=== PATIENT | male | born 1960 | race Caucasian/White ===

== ENCOUNTER 2017-06-14 10:15 | Emergency (ER) | payer SELFPAY ==
[2017-06-14] MEDS ORDERED: IPRATROPIUM/ALBUTEROL SULFATE 3 ML AMPUL.NEB NEB ONE (10:19)
[2017-06-14] MEDS: IPRATROPIUM/ALBUTEROL SULFATE 3 ML AMPUL.NEB NEB STA (10:25)
[2017-06-14] MEDS ORDERED: ALBUTEROL SULFATE 2.5 MG/3 ML AMPUL.NEB NEB ONE (10:32)
[2017-06-14] MEDS: methylPREDNISolone SOD SUCC 125 MG/2 ML VIAL IVP ONE (10:43)
[2017-06-14] MEDS: ALBUTEROL SULFATE 2.5 MG/0.5 ML AMPUL.NEB NEB ONE (10:43)
[2017-06-14 11:18] LABS: BASOPHILS % 1.8 (0.0-1.5); EOSINOPHILS % 13.7 % (0.0-6.8); MEAN CORPUSCULAR HEMOGLOBIN 30.5 pg (28.0-34.0); MEAN CORPUSCULAR VOLUME 91.8 fl (80.0-100.0); MONOCYTES % 4.8 % (0.0-11.0); NEUTROPHILS # 3.6 # k/uL (1.4-7.7)
[2017-06-14 11:19] LABS: eGFR (African) > 60; eGFR (Non-African) > 60
--- NOTE | 2017-06-14 12:18 | ED Physician Documentation ---
Dyspnea - HISTORIAN Historian: patient - HPI Stated Complaint: short of breath Chief Complaint: Dyspnea Onset: days ago (7) Duration: continues in ED, worse Initiating Event: upper respiratory illness Severity: moderate Further Comments: yes (56 year old male patient presents with complaints of wheezing and dyspnea. Patient reports symptoms started 7 days ago and have become progressively worse. Patient reports being incarcerated for the past 3 years, was released in early April. Patient is now out of his daily medications and has 12 puffs of albuterol left. States he quit smoking 8 months ago, strong smell of cigarette smoke. C/O wheezing and dyspnea.) - ROS CONST: no problems EYES/ENT: none GI/: none NEURO/PSYCH: denies: headache MS/SKIN/LYMPH: none - PAST HX Lung Disease: asthma, COPD Cardiac Disease: other (HLD) PE Risk Factors: hypertension Other History: diabetes Type 2, other (hypothyriod) Allergies/Adverse Reactions: Allergies Allergy/AdvReac Type Severity Reaction Status Date / Time latex Allergy Verified 06/14/17 10:48 No Known Drug Allergies Allergy Verified 07/04/14 21:23 Home Medications: Ambulatory Orders Medication Instructions Recorded Albuterol Sulfate [Ventolin HFN] 2.5 mg NEB Q4 PRN #25 vial 06/14/17 Fluticasone/Salmeterol [Advair 1 each INH BID #1 ea 06/14/17 250-50 Diskus] Ipratropium/Albuterol Sulfate 3 ml NEB BID #25 ampul.neb 06/14/17 [Duoneb] Levofloxacin [Levaquin] 500 mg PO DAILY #7 tablet 06/14/17 - SOCIAL HX Smoking History: quit less than 1 year, cigarettes - FAMILY HX Family History: denies: none - VITAL SIGNS Vital Signs: Vital Signs Temp Pulse Resp BP Pulse Ox 37.1 F L 83 24 120/90 95 06/14/17 10:16 06/14/17 10:16 06/14/17 10:16 06/14/17 10:16 06/14/17 10:16 - REVIEWED ASSESSMENTS Nursing Assessment Reviewed: Yes Vitals Reviewed: Yes Progress - Progress Progress: Patient with mild tachpnea on arrival, able to speak in complete sentences, RA Sat 95%, Duoneb given on arrival. RA sat 95% Continued wheezing, albuterol neb given. Faint expiratory wheezing. Patient reports he does not have health insurance or prescription insurance, no PCP. Has tapered off his daily medications including singulair, metoprolol, norvasc, levothyroxine and aspirin. Coupon provided for singulair, advair and levaquin. Patient cannot afford inhaler. Nebulizer prescriptions sent for duoneb and albuterol. ED Results Lab/Radiology - Lab Results Lab Results: Lab Results 06/14/17 06/14/17 11:03 11:03 WBC 6.50 K/ul K/ul (4.00-12.00) RBC 4.70 M/ul M/ul (3.90-5.20) Hgb 14.3 g/dL g/dL (12.0-18.0) Hct 43.1 % % (37.0-53.0) MCV 91.8 fl fl (80.0-100.0) MCH 30.5 pg pg (28.0-34.0) MCHC 33.2 g/dL g/dL (30.0-36.0) RDW 13.0 % % (11.3-14.3) Plt Count 195 K/mm3 K/mm3 (130-400) Neut % (Auto) 55.0 % % (39.0-79.0) Lymph % (Auto) 21.5 % % (16.0-50.0) [place] % (Auto) 4.8 % % (0.0-11.0) Eos % (Auto) 13.7 % H % (0.0-6.8) Baso % (Auto) 1.8 H (0.0-1.5) Neut # (Auto) 3.6 # k/uL # k/uL (1.4-7.7) Lymph # (Auto) 1.4 # k/uL # k/uL (0.6-4.0) [place] # (Auto) 0.3 # k/uL # k/uL (0.0-0.9) Eos # (Auto) 0.9 # k/uL H # k/uL (0.0-0.6) Baso # (Auto) 0.1 # k/uL # k/uL (0.0-0.5) Reactive Lymphs % 3.2 % % (0.0-5.0) Reactive Lymphs # 0.2 # k/uL # k/uL (0.0-0.8) Sodium 138 mmol/L mmol/L (136-145) Potassium 4.2 mmol/L mmol/L (3.5-5.0) Chloride 105 mmol/L mmol/L (98-110) Carbon Dioxide 24 mmol/L mmol/L (20-32) BUN 15 mg/dL mg/dL (10-26) Creatinine 1.0 mg/dL mg/dL (0.4-1.5) Estimated Creat Clear 86 Est GFR ( Amer) > 60 (60 - ) Est GFR (Non-Af Amer) > 60 (60 - ) Glucose 192 mg/dL H mg/dL (70-99) Calcium 9.4 mg/dL mg/dL (8.5-10.5) Total Bilirubin 0.4 mg/dL mg/dL (0.2-1.2) AST 21 U/L U/L (0-41) ALT 25 U/L U/L (0-45) Alkaline Phosphatase 75 U/L U/L (46-116) Total Protein 7.3 g/dL g/dL (6.0-8.5) Albumin 4.5 g/dL g/dL (3.0-5.5) - Radiology Radiology Impressions: Chest 2 views History: Shortness of breath Findings: The sourav are normal in size. Mild bilateral perihilar haziness may represent infiltrate or bronchitis. A calcified right lung granuloma and right shoulder arthroplasty are observed. Heart size is normal. There is no pleural effusion. Impression: Mild bilateral perihilar infiltrate versus bronchitis. Electronically signed on Jun 14, 2017 11:50:35 AM CDT by: Tom Soriano - Orders Orders: ED Orders Category Date Time Status Place IV Lock 1T Care 06/14/17 10:24 Active CHEST 1 VIEW [RAD] Stat Exams 06/14/17 10:24 Taken CHEST 2 VIEW [CHEST P.A.&LAT 2 VIEWS] [RAD] Stat Exams 06/14/17 Taken CBC/PLATELET/DIFF Stat Lab 06/14/17 11:03 Completed CMP Stat Lab 06/14/17 11:03 Completed Albuterol Sulfate Med 06/14/17 10:31 Discontinued 2.5 mg NEB NOW ONE Albuterol Sulfate [Ventolin] Med 06/14/17 10:32 Discontinued 2.5 mg NEB .STK-MED ONE Ipratropium/Albuterol Sulfate [Duoneb] Med 06/14/17 10:19 Discontinued 3 ml NEB .STK-MED ONE Ipratropium/Albuterol Sulfate [Duoneb] Med 06/14/17 10:23 Discontinued 3 ml NEB STAT STA methylPREDNISolone SOD SUCC [Solu-MEDROL] Med 06/14/17 10:24 Discontinued 125 mg IVP NOW ONE Dyspnea Physical Exam - EXAM General Appearance: moderate distress EENT: eye inspection normal, ENT inspection normal, pharynx normal, no signs of dehydration, [place], no nystagmus, TM's nml Respiratory: no pain on inspiration, speaks full sentences, accessory muscle use , wheezes (bilateral expiratory) CVS: reg. 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 Neuro/Psych: oriented x3, CN's nml as tested, motor nml, sensation nml, mood/ affect nml Discharge Clincal Impression: Does not have health insurance Asthma Qualifiers: Asthma severity: unspecified severity Asthma complication type: with acute exacerbation Qualified Code(s): J45.901 - Unspecified asthma with (acute) exacerbation Dyspnea Qualifiers: Dyspnea type: other forms of dyspnea Qualified Code(s): R06.09 - Other forms of dyspnea Prescriptions: Albuterol Sulfate [Ventolin HFN] 2.5 mg NEB Q4 PRN #25 vial PRN Reason: Wheezing Fluticasone/Salmeterol [Advair 250-50 Diskus] 1 each INH BID #1 ea Ipratropium/Albuterol Sulfate [Duoneb] 3 ml NEB BID #25 ampul.neb Levofloxacin [Levaquin] 500 mg PO DAILY #7 tablet Referrals: Primary Doctor,No [Primary Care Provider] - 2 Days Additional Instructions: regulation supervisor your prescriptions at [facility] today. Levaquin - antibiotic Duoneb - nebulizer, twice a day Albuterol - nebulizer, as needed for wheezing. You should have a coupon in your email for Advair Fill your Singulair at [facility] with the coupon provided tomorrow. STOP SMOKING Establish primary care at one of the free clinics in the list provided. You need to RESTART many of your daily medication. Home Medications: Ambulatory Orders Albuterol Sulfate [Ventolin HFN] 2.5 mg NEB Q4 PRN #25 vial 06/14/17 Fluticasone/Salmeterol [Advair 250-50 Diskus] 1 each INH BID #1 ea 06/14/17 Ipratropium/Albuterol Sulfate [Duoneb] 3 ml NEB BID #25 ampul.neb 06/14/17 Levofloxacin [Levaquin] 500 mg PO DAILY #7 tablet 06/14/17 Condition: Stable Disposition: 01 HOME, SELF-CARE Decision to Admit: NO Decision Time: 12:18
[2017-06-14 12:31] VITALS: BP 122/81
--- NOTE | 2017-06-14 18:24 | Diagnostic Imaging Report ---
LAVERNE GATICA (LEE) - ER~ [facility] [address] [address] ~ ~ ~ ~ Report Submission Date: Jun 14, 2017 11:14:38 AM CDT Patient ~ Study Name: NEMO DE DIOS ~ Date: Jun 14, 2017 10:50:38 AM CDT ~ Modality Type: CR Gender: M ~ Description: CHEST : 64 ~ Institution: [facility] Physician: LAVERNE GATICA) - ER ~ ~ ~ ~ Portal chest History: 1 week of shortness of breath Findings: Right shoulder arthroplasty is observed. The left hilum is mildly enlarged. A calcified right lung granuloma is present. There is no confluent infiltrate or pleural effusion. Heart size is normal. Impression: Mild left hilar enlargement. Differential includes normal variation , lymphadenopathy, mass, vascular enlargement, or perihilar infiltrate. Recommend a standing 2 view chest radiograph with maximal inspiratory effort. ~ Electronically signed on Jun 14, 2017 11:14:38 AM CDT by: Tom ORDOÑEZ
--- NOTE | 2017-06-14 18:25 | Diagnostic Imaging Report ---
LAVERNE GATICA (LEE) - ER~ [facility] [address] [address] ~ ~ ~ ~ Report Submission Date: Jun 14, 2017 11:50:35 AM CDT Patient ~ Study Name: NEMO DE DIOS ~ Date: Jun 14, 2017 11:30:31 AM CDT ~ Modality Type: CR Gender: M ~ Description: CHEST : 64 ~ Institution: [facility] Physician: LAVERNE GATICA) - ER ~ ~ ~ ~ Chest 2 views History: Shortness of breath Findings: The sourav are normal in size. Mild bilateral perihilar haziness may represent infiltrate or bronchitis. A calcified right lung granuloma and right shoulder arthroplasty are observed. Heart size is normal. There is no pleural effusion. Impression: Mild bilateral perihilar infiltrate versus bronchitis. ~ Electronically signed on Jun 14, 2017 11:50:35 AM CDT by: Tom ORDOÑEZ
== END 2017-06-14 12:29 | disposition home or self-care (01) ==
LOC: ED 10:15
DX: J45.901 Unspecified asthma with (acute) exacerbation (principal); R06.09 Other forms of dyspnea
CPT/HCPCS: 71010; 71020; 80053; 85025; J2930; 96374; 99283; S1016

== ENCOUNTER 2017-07-11 06:45 | Emergency (ER) | payer SELFPAY ==
[2017-07-11] MEDS ORDERED: 0.9 % SODIUM CHLORIDE 1,000 ML IV ONE ×2 (06:55→07:00)
[2017-07-11 07:27] LABS: BASOPHILS % 0.5 (0.0-1.5); EOSINOPHILS % 1.1 % (0.0-6.8); MEAN CORPUSCULAR HEMOGLOBIN 30.3 pg (28.0-34.0); MEAN CORPUSCULAR VOLUME 91.4 fl (80.0-100.0); MONOCYTES % 5.2 % (0.0-11.0); NEUTROPHILS # 5.2 # k/uL (1.4-7.7)
[2017-07-11 07:30] LABS: eGFR (African) > 60; eGFR (Non-African) > 60
[2017-07-11] MEDS ORDERED: 0.9 % SODIUM CHLORIDE 1,000 ML IV SCH ×2 (07:30→09:00)
[2017-07-11] MEDS ORDERED: cefTRIAXone SODIUM 1 GM VIAL ONE (07:37)
[2017-07-11] MEDS ORDERED: 0.9 % SODIUM CHLORIDE 50 ML IV ONE (07:38)
--- NOTE | 2017-07-11 07:59 | Diagnostic Imaging Report ---
[facility] [address] [address] Report Submission Date: Jul 11, 2017 7:41:04 AM CDT Patient Study Name: NEMO DE DIOS Date: Jul 11, 2017 7:15:13 AM CDT Modality Type: CR Gender: M Description: CHEST : 64 Institution: [facility] Physician: DANGELO CHEN - ROXANA 2 views of the chest History: COUGH. SHORTNESS OF BREATH. NON-SMOKER Comparison: June 14, 2017 Cardiomediastinal silhouette stable, right lower lobe calcified granuloma is again seen. Prominent sourav and peribronchial thickening is again noted. There is bibasilar atelectasis. Interval development of patchy opacity in the left lower lobe. No pleural effusion Patient is post right humeral prosthesis Impression: 1. Stable hilar prominence with bronchitis/ patchy infiltrates 2. Interval development of left lower lobe infiltrate /atelectasis. 3. Subsegmental right lower lobe atelectasis. No pleural effusion. Electronically signed on Jul 11, 2017 7:41:04 AM CDT by: Yvonne ORDOÑEZ
[2017-07-11] MEDS ORDERED: cefTRIAXone SODIUM 1 GM in 0.9 % SODIUM CHLORIDE 50 ML IV SCH (08:00)
[2017-07-11] MEDS ORDERED: METOPROLOL TARTRATE 5 MG/5 ML VIAL IVP ONE ×3 (08:47→09:18)
[2017-07-11] MEDS ORDERED: ALBUTEROL SULFATE 2.5 MG/0.5 ML AMPUL.NEB NEB ONE (08:52)
[2017-07-11] MEDS ORDERED: BUDESONIDE 0.5MG/2ML AMPUL.NEB NEB ONE (08:52)
[2017-07-11] MEDS ORDERED: ALBUTEROL SULFATE 2.5 MG/3 ML AMPUL.NEB NEB ONE (08:53)
[2017-07-11] MEDS ORDERED: LEVALBUTEROL HCL 1.25 MG/3 ML AMPUL.NEB NEB ONE ×2 (08:53→08:57)
[2017-07-11] MEDS ORDERED: BUDESONIDE 0.5MG/2ML AMPUL.NEB NEB SCH (09:00)
--- NOTE | 2017-07-11 10:37 | Diagnostic Imaging Report ---
[facility] [address] [facility].[address] [address] Report Submission Date: Jul 11, 2017 10:27:53 AM CDT Patient Study Name: NEMO DE DIOS Date: Jul 11, 2017 9:59:12 AM CDT Modality Type: CT\SR Gender: M Description: CT ANGIOGRAPHY CHEST 7 : 64 Institution: [facility] Physician: DANGELO CHEN - ER Examination: CT chest pulmonary embolism History: Chest discomfort. Comparison exam: Plain film chest dated July 2017 Technique: CT chest pulmonic pulmonary embolism protocol. Findings: Within a peripheral branch vessels to the left lower lung is a luminal filling defect. No evidence for luminal filling defect within the main pulmonary arteries bilaterally. Thoracic aorta without aneurysmal dilation. No evidence for dissection flap. Minimal peripheral atherosclerotic disease. Lungs demonstrate dependent atelectasis bilaterally. Mild parenchymal haziness involving the right lower and middle lungs. No evidence for posterior pleural effusion or thickening. Prominent right hilar lymph nodes: Largest measuring 1.6 cm. Cardiac silhouette not enlarged. No pericardial effusion. Osseous structures demonstrate mild degenerative changes. Lower neck structures , axilla regions, and upper abdominal organs are without gross irregularity. Impression: Small peripheral luminal filling defect to the left lower lung - small peripheral pulmonary emboli. No evidence for central pulmonary embolism by CT criteria. No evidence for thoracic aortic dissection or abnormality. Mild right middle and lower lung infiltrates. Associated right hilar prominent lymph nodes - possibly reactive in etiology. Electronically signed on Jul 11, 2017 10:27:53 AM CDT by: Sergio ORDOÑEZ
[2017-07-11] MEDS ORDERED: HEPARIN SODIUM,PORCINE/D5W 500 ML IV ONE ×3 (11:05→11:30)
[2017-07-11] MEDS ORDERED: HEPARIN SODIUM 5000 UNIT/1 ML IVP ONE (11:07)
[2017-07-11] MEDS ORDERED: HEPARIN SODIUM,PORCINE/D5W 20,000 UNIT/500 ML BAG IV ONE (11:08)
[2017-07-11] MEDS ORDERED: HEPARIN SODIUM 5000 UNIT/1 ML ONE (11:09)
[2017-07-11] MEDS ORDERED: WATER IV ONE ×2 (11:42)
[2017-07-11] MEDS ORDERED: HEPARIN SODIUM IV ONE ×2 (11:42)
[2017-07-11] MEDS ORDERED: DEXTROSE 5% IV ONE ×2 (11:42)
--- NOTE | 2017-07-11 12:06 | ED Physician Documentation ---
Dyspnea - HISTORIAN Historian: patient, spouse - HPI Stated Complaint: SOA Chief Complaint: Dyspnea Additional Information: dyspnea tachypnea tachycardia' pt under care for few weeks tx few weeks ago w/ azithromycin better short period time then worse - recent w/ levaquin still worse. says black mold in house. 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 had [facility] another here still sob and tachy Onset: days ago (weeks) Duration: continues in ED. denies: better Initiating Event: upper respiratory illness, environmental allergy, exposure to smoke, exposure to mold Severity: moderate Exacerbated By: exertion, laying flat Associated Symptoms: chest discomfort, productive cough, heart racing. denies: chills, fever Further Comments: no - ROS CONST: recent illness EYES/ENT: denies: problems with vision GI/: none NEURO/PSYCH: denies: headache - PAST HX Lung Disease: asthma, bronchitis PE Risk Factors: hypertension (mother w/ ), hx DVT (motherdiied w/pulm emb) Surgeries/Procedures: other (shoulder) Allergies/Adverse Reactions: Allergies Allergy/AdvReac Type Severity Reaction Status Date / Time latex Allergy Verified 07/11/17 06:53 No Known Drug Allergies Allergy Verified 07/11/17 06:53 Home Medications: Ambulatory Orders Medication Instructions Recorded Albuterol Sulfate [Ventolin HFN] 2.5 mg NEB Q4 PRN #25 vial 06/14/17 Fluticasone/Salmeterol [Advair 1 each INH BID #1 ea 06/14/17 250-50 Diskus] Ipratropium/Albuterol Sulfate 3 ml NEB BID #25 ampul.neb 06/14/17 [Duoneb] Levofloxacin [Levaquin] 500 mg PO DAILY #7 tablet 06/14/17 - SOCIAL HX Smoking History: non-smoker Alcohol Use: none Drug Use: none - FAMILY HX Family History: other (mom w PE) - VITAL SIGNS Vital Signs: Vital Signs Temp Pulse Resp BP Pulse Ox 100.8 F H 168 H 22 111/67 87 L 07/11/17 06:45 07/11/17 06:45 07/11/17 06:45 07/11/17 06:45 07/11/17 06:45 - REVIEWED ASSESSMENTS Nursing Assessment Reviewed: Yes Vitals Reviewed: Yes ED Results Lab/Radiology - Lab Results Lab Results: Lab Results 07/11/17 07/11/17 07/11/17 07:15 07:15 07:15 WBC RBC Hgb Hct MCV MCH MCHC RDW Plt Count Neut % (Auto) Lymph % (Auto) [place] % (Auto) Eos % (Auto) Baso % (Auto) Neut # (Auto) Lymph # (Auto) [place] # (Auto) Eos # (Auto) Baso # (Auto) Reactive Lymphs % Reactive Lymphs # PT INR APTT 25.0 Seconds Seconds (24.5-32.8) Sodium 134 mmol/L L mmol/L (137-145) Potassium 3.7 mmol/L mmol/L (3.5-5.1) Chloride 104 mmol/L mmol/L (98-107) Carbon Dioxide 20 mmol/L L mmol/L (22-30) BUN 13 mg/dL mg/dL (9-20) Creatinine 1.00 mg/dL mg/dL (0.66-1.25) Estimated Creat Clear 91 Est GFR ( Amer) > 60 (60 - ) Est GFR (Non-Af Amer) > 60 (60 - ) Glucose 248 mg/dL H mg/dL (74-106) Lactate 2.5 U/L H U/L (0.7-2.1) Calcium 7.9 mg/dL L mg/dL (8.4-10.2) Total Bilirubin 0.2 mg/dL mg/dL (0.2-1.3) AST 17 U/L U/L (15-46) ALT 36 U/L U/L (13-69) Alkaline Phosphatase 57 U/L U/L (38-126) Total Protein 6.3 g/dL g/dL (6.3-8.2) Albumin 3.5 g/dL g/dL (3.5-5.0) 07/11/17 07/11/17 07:15 07:15 WBC 6.02 K/ul K/ul (4.00-12.00) RBC 4.37 M/ul M/ul (3.90-5.20) Hgb 13.3 g/dL g/dL (12.0-18.0) Hct 40.0 % % (37.0-53.0) MCV 91.4 fl fl (80.0-100.0) MCH 30.3 pg pg (28.0-34.0) MCHC 33.2 g/dL g/dL (30.0-36.0) RDW 12.9 % % (11.3-14.3) Plt Count 151 K/mm3 K/mm3 (130-400) Neut % (Auto) 86.4 % H % (39.0-79.0) Lymph % (Auto) 5.6 % L % (16.0-50.0) [place] % (Auto) 5.2 % % (0.0-11.0) Eos % (Auto) 1.1 % % (0.0-6.8) Baso % (Auto) 0.5 (0.0-1.5) Neut # (Auto) 5.2 # k/uL # k/uL (1.4-7.7) Lymph # (Auto) 0.3 # k/uL L # k/uL (0.6-4.0) [place] # (Auto) 0.3 # k/uL # k/uL (0.0-0.9) Eos # (Auto) 0.1 # k/uL # k/uL (0.0-0.6) Baso # (Auto) 0.0 # k/uL # k/uL (0.0-0.5) Reactive Lymphs % 1.2 % % (0.0-5.0) Reactive Lymphs # 0.1 # k/uL # k/uL (0.0-0.8) PT 10.2 Seconds Seconds (9.4-11.6) INR 0.97 (0.9-1.2) APTT Sodium Potassium Chloride Carbon Dioxide BUN Creatinine Estimated Creat Clear Est GFR ( Amer) Est GFR (Non-Af Amer) Glucose Lactate Calcium Total Bilirubin AST ALT Alkaline Phosphatase Total Protein Albumin - Radiology Radiology Impressions: cxr multi areas congestion - Orders Orders: ED Orders Category Date Time Status CHEST P.A.&LAT 2 VIEWS [RAD] Stat Exams 07/11/[address] PE CHEST Stat Exams 07/11/17 Completed BLOOD CULTURE Stat Lab 07/11/17 07:15 Received CBC/PLATELET/DIFF Routine Lab 07/11/17 07:15 Completed CMP Routine Lab 07/11/17 07:15 Completed LACTATE Stat Lab 07/11/17 07:15 Completed PT-INR Routine Lab 07/11/17 07:15 Completed PTT Routine Lab 07/11/17 07:15 Completed 0.9 % Sodium Chloride [Normal Saline] 1,000 ml Med 07/11/17 06:55 Discontinued IV .STK-MED 0.9 % Sodium Chloride [Normal Saline] 1,000 ml Med 07/11/17 07:30 Discontinued IV Q10H 0.9 % Sodium Chloride [Normal Saline] 1,000 ml Med 07/11/17 09:00 Ordered IV Q10H 0.9 % Sodium Chloride [Normal Saline] 1,000 ml Med 07/11/17 07:00 Discontinued IV Q1H 0.9 % Sodium Chloride [Sodium Chloride] 50 ml Med 07/11/17 07:38 Discontinued IV .STK-MED Albuterol Sulfate Med 07/11/17 08:52 Discontinued 2.5 mg NEB NOW ONE Albuterol Sulfate [Ventolin] Med 07/11/17 08:53 Discontinued 2.5 mg NEB .STK-MED ONE Budesonide [Pulmicort] Med 07/11/17 09:00 Ordered 0.5 mg NEB BID Heparin Sodium [Heparin] Med 07/11/17 11:09 Discontinued 5,000 unit .ROUTE .STK-MED ONE Heparin Sodium [Heparin] Med 07/11/17 11:07 Discontinued 5,000 unit IVP NOW ONE Heparin Sodium,Porcine/D5w [Heparin] 500 ml Med 07/11/17 11:05 Discontinued IV 1T Heparin Sodium,Porcine/D5w [Heparin] 500 ml Med 07/11/17 11:06 Discontinued IV 1T Heparin Sodium,Porcine/D5w [Heparin] 500 ml Med 07/11/17 11:30 Discontinued IV 1T Heparin Sodium,Porcine/D5w [Heparin] 500 ml Med 07/11/17 11:42 Ordered IV DAILY Levalbuterol HCl [Xopenex] Med 07/11/17 08:53 Discontinued 1.25 mg NEB .STK-MED ONE Levalbuterol HCl [Xopenex] Med 07/11/17 08:57 Discontinued 1.25 mg NEB NOW ONE Metformin HCl [Glucophage] Med 07/11/17 08:57 Discontinued 1,000 mg PO NOW ONE Metoprolol Tartrate [Toprol] Med 07/11/17 08:47 Discontinued 5 mg IVP .STK-MED ONE Metoprolol Tartrate [Toprol] Med 07/11/17 08:47 Discontinued 5 mg IVP NOW ONE Metoprolol Tartrate [Toprol] Med 07/11/17 09:18 Discontinued 5 mg IVP NOW ONE cefTRIAXone SODIUM [Rocephin] Med 07/11/17 07:37 Discontinued 1 gm .ROUTE .STK-MED ONE cefTRIAXone SODIUM [Rocephin] 1 gm Med 07/11/17 08:00 Ordered 0.9 % Sodium Chloride [Sodium Chloride] 50 ml IV QD EKG WITH COMPARISON Stat Ther 07/11/17 Ordered Dyspnea Physical Exam - EXAM General Appearance: moderate distress, other (tachycardia 150s). No: hyperventilating EENT: eye inspection normal Neck: nml inspection Respiratory: speaks full sentences, decreased air movement, wheezes, rales, rhonchi. No: breath sounds nml, respiratory distress CVS: tachycardia Abdomen: non-tender Skin: color nml, no rash. No: cyanosis, diaphoresis, pallor, ecchymosis Extremities: non-tender, normal range of motion Neuro/Psych: oriented x3, motor nml, sensation nml, mood/affect nml Discharge Clincal Impression: multi small peripheral pulm emboli, persistent tachycardia tachypnea, unc diabetes Referrals: Primary Doctor,No [Primary Care Provider] - 2 Days Comments: bernadette canela w/pt DR SOTO [facility] [place] via ambulance for detailed pulm eval and tx Condition: Good Disposition: 02 XFER [facility]M HOSP Decision to Admit: [id number] Decision Time: 11:20
[2017-07-11 13:26] VITALS: BP 110/72
[2017-07-12 05:37] LABS: APPEARANCE,URINE CLEAR (CLEAR); COLOR,URINE YELLOW (YELLOW); OCCULT BLOOD,URINE NEGATIVE (NEGATIVE); UROBILINOGEN URINE 0.2 Eu (0.2-1.0)
== END 2017-07-11 13:20 | disposition short-term general hospital (02) ==
LOC: ED 06:45
DX: I26.99 Other pulmonary embolism without acute cor pulmonale (principal); R00.0 Tachycardia, unspecified; R06.82 Tachypnea, not elsewhere classified; E11.649 Type 2 diabetes mellitus with hypoglycemia without coma
CPT/HCPCS: 36415; 71020; 71275; 80053; 83605; 85025; 85610; 85730; 87040; 93005; J0696; J1644; J3490; J7030; J7614; J7626; Q9966; 81002; 96361; 96374; 96375; 96376; 99284; S1016

== ENCOUNTER 2017-10-07 10:55 | Emergency (ER) | payer SELFPAY ==
--- NOTE | 2017-10-07 11:15 | ED Physician Documentation ---
Asthma - HISTORIAN Historian: patient - HPI Stated Complaint: shortness of breath Chief Complaint: Dyspnea Additional Information: Patient has an admission to acute care for asthma and influenza in Jul of this year. Over the last week he started to have some difficulties again. Patient has been put on sigular and Advair and Spiriva. Has not been able to afford the medications and has not been taking them. Has been Albuterol MDI and duoneb treatments and seems to be getting worse. Cough is dry, sometimes clear in nature, no fever or chills noted. Onset: days ago (7 days) Duration: continues in ED - ROS CONST: no problems - PAST HX Asthma: occasional attacks, previously admitted Lung Disease: asthma Other History: diabetes Type 2, hypertension Surgeries/Procedures: other (total shoulder right, arthroscopic surgery on right knee) Allergies/Adverse Reactions: Allergies Allergy/AdvReac Type Severity Reaction Status Date / Time latex Allergy Verified 10/07/17 11:07 No Known Drug Allergies Allergy Verified 10/07/17 11:07 Home Medications: Ambulatory Orders Medication Instructions Recorded Albuterol Sulfate [Ventolin HFN] 2.5 mg NEB Q4 PRN #25 vial 06/14/17 Fluticasone/Salmeterol [Advair 1 each INH BID #1 ea 06/14/17 250-50 Diskus] Ipratropium/Albuterol Sulfate 3 ml NEB BID #25 ampul.neb 06/14/17 [Duoneb] Esomeprazole Magnesium [Nexium] 20 mg PO 10/07/17 Fexofenadine HCl [Zully] 30 mg PO 10/07/17 Levothyroxine Sodium [Unithroid] 100 mcg PO QDAY 10/07/17 Lisinopril [Lisinopril] 40 mg PO QDAY 10/07/17 Metformin HCl [Metformin HCl ER] 1,000 mg PO 10/07/17 Metoprolol Succinate [Toprol XL] 25 mg PO 10/07/17 Ranitidine HCl [Zantac] 75 mg PO 10/07/17 predniSONE [Deltasone] 10 mg PO DIRECTED #36 tablet 10/07/17 - SOCIAL HX Smoking History: non-smoker, quit greater than 1 year (26 years ago) Alcohol Use: none Drug Use: none - FAMILY HX Family History: asthma - VITAL SIGNS Vital Signs: Vital Signs Temp Pulse Resp BP Pulse Ox 97.6 F 93 H 20 156/78 95 10/07/17 10:55 10/07/17 10:55 10/07/17 10:55 10/07/17 10:55 10/07/17 10:55 - REVIEWED ASSESSMENTS Nursing Assessment Reviewed: Yes Vitals Reviewed: Yes Progress - Progress Progress: 12:23 Breathing some better, still wheezing some but moving air better ED Results Lab/Radiology - Radiology Radiology Impressions: Examination: PA and lateral chest. History: Evaluate lung benton. Comparison exam: One of 2016 Findings: PA lateral chest demonstrate a normal cardiac and mediastinal silhouette. Stable hilar vascular fullness. Stable right lower lung granuloma. No focal infiltrate. No blunting of the costophrenic margins. Right humeral replacement. Impression: Stable examination. No acute pulmonary process. Asthma Physical Exam - EXAM General Appearance: alert, mild distress EENT: eye inspection normal, ENT inspection normal, pharynx normal, no signs of dehydration Neck: nml inspection. No: lymphadenopathy Respiratory: speaks full sentences, respiratory distress (mild), wheezes (bilat exspiratory). No: chest wall tenderness CVS: reg rate & rhythm, heart sounds normal, equal pulses, no murmur, no gallop Abdomen: non-tender, no organomegaly, nml bowel sounds, no distention Skin: color nml, no rash Extremities: non-tender Neuro/Psych: oriented x3, mood/affect nml Discharge Clincal Impression: Exacerbation of asthma Qualifiers: Asthma severity: mild Asthma persistence: intermittent Qualified Code(s): J45.21 - Mild intermittent asthma with (acute) exacerbation Prescriptions: predniSONE [Deltasone] 10 mg PO DIRECTED #36 tablet Referrals: Primary Doctor,No [Primary Care Provider] - 2 Days Additional Instructions: Continue taking your albuterol inhaler as needed. Take Advair sample 500/50 and use it twice a day. Rinse your mouth out after use. Take the prednisone as prescribed in a tapering dose. The prednisone may cause your blood sugar to increase so monitor it carefully. Decision to Admit: NO Date of Decison to Admit: 10/07/17 Decision Time: 12:37
[2017-10-07] MEDS: IPRATROPIUM/ALBUTEROL SULFATE 3 ML AMPUL.NEB NEB ONE (11:28)
[2017-10-07] MEDS: methylPREDNISolone SOD SUCC 125 MG/2 ML VIAL IVP ONE (11:37)
[2017-10-07 11:41] LABS: BASOPHILS % 1.5 (0.0-1.5); EOSINOPHILS % 12.5 % (0.0-6.8); MEAN CORPUSCULAR HEMOGLOBIN 30.5 pg (28.0-34.0); MEAN CORPUSCULAR VOLUME 88.4 fl (80.0-100.0); MONOCYTES % 4.6 % (0.0-11.0); NEUTROPHILS # 3.6 # k/uL (1.4-7.7)
[2017-10-07 11:55] LABS: eGFR (African) > 60; eGFR (Non-African) > 60
--- NOTE | 2017-10-07 12:14 | Diagnostic Imaging Report ---
JOÃO LUTZ [facility] [address] [facility] [address] [address] Report Submission Date: Oct 07, 2017 11:56:24 AM TIMING INSPECTOR Patient Study Name: NEMO DE DIOS Date: Oct 07, 2017 11:38:53 AM TIMING INSPECTOR Modality Type: CR Gender: M Description: CHEST : 64 Institution: [facility] Physician: JOÃO LUTZ Examination: PA and lateral chest. History: Evaluate lung benton. Comparison exam: One 2016 Findings: PA lateral chest demonstrate a normal cardiac and mediastinal silhouette. Stable hilar vascular fullness. Stable right lower lung granuloma. No focal infiltrate. No blunting of the costophrenic margins. Right humeral replacement. Impression: Stable examination. No acute pulmonary process. Electronically signed on Oct 07, 2017 11:56:24 AM TIMING INSPECTOR by: Sergio ORDOÑEZ
[2017-10-07 12:50] VITALS: BP 139/88
== END 2017-10-07 13:05 ==
LOC: ED 10:55
DX: J45.21 Mild intermittent asthma with (acute) exacerbation (principal)
CPT/HCPCS: 71020; 80053; 85025; J2930; 94640; 96374; 99283; S1016

== ENCOUNTER 2017-12-16 11:52 | Emergency (ER) | payer SELFPAY ==
[2017-12-16] MEDS: IPRATROPIUM/ALBUTEROL SULFATE 3 ML AMPUL.NEB NEB STA (12:01)
[2017-12-16] MEDS ORDERED: IPRATROPIUM/ALBUTEROL SULFATE 3 ML AMPUL.NEB NEB ONE (12:01)
[2017-12-16 12:54] LABS: BASOPHILS % 1.3 (0.0-1.5); MEAN CORPUSCULAR HEMOGLOBIN 30.9 pg (28.0-34.0); MEAN CORPUSCULAR VOLUME 86.4 fl (80.0-100.0); NEUTROPHILS # 4.1 # k/uL (1.4-7.7)
--- NOTE | 2017-12-16 12:55 | ED Physician Documentation ---
Asthma - HPI Stated Complaint: short of breath Chief Complaint: Wheezing Onset: days ago Duration: continues in ED, worse Initiating Event: out of meds Associated Symptoms:: trouble breathing. denies: fever, sweating, shortness of breath, hurts to breath, productive cough, chest discomfort, chest pain, chest pressure, chest tightness Further Comments: yes (57 year old male patient presents to ER with complaint of wheezing. Patient states he has been out of all of his medications since gettting out of fpc 6-7 months ago. States he has been taking his 's 40mg lisinopril tabs for his BP. Patient has not had health insurance. He recieved his Medicaid number today and came to the ER for treatment of his wheezing. Patient is requesting refill on all of his old medications.) - ROS CONST: denies: recent illness EYES/ENT: denies: eye redness, eye itching, sore throat, runny nose, other CVS: denies: heart racing, palpitations, other GI/: none MS/SKIN/LYMPH: denies: ankle swelling, leg pain, rash, swollen glands, leg swelling, calf pain, other NEURO/PSYCH: denies: headache, dizziness, light-headedness, anxiety, tingling hands, muscle spasms hands, tingling face, muscle spasms face, other - PAST HX Asthma: occasional attacks Lung Disease: COPD Other History: hypertension, other (GERD, insomnia) Allergies/Adverse Reactions: Allergies Allergy/AdvReac Type Severity Reaction Status Date / Time latex Allergy Verified 12/16/17 12:24 No Known Drug Allergies Allergy Verified 12/16/17 12:24 Home Medications: Ambulatory Orders Medication Instructions Recorded Albuterol Sulfate [Ventolin HFN] 2.5 mg NEB Q4 PRN #25 vial 06/14/17 Fluticasone/Salmeterol [Advair 1 each INH BID #1 ea 06/14/17 250-50 Diskus] Ipratropium/Albuterol Sulfate 3 ml NEB BID #25 ampul.neb 06/14/17 [Duoneb] Esomeprazole Magnesium [Nexium] 20 mg PO 10/07/17 Fexofenadine HCl [Zully] 30 mg PO 10/07/17 Levothyroxine Sodium [Unithroid] 100 mcg PO QDAY 10/07/17 Lisinopril [Lisinopril] 40 mg PO QDAY 10/07/17 Metformin HCl [Metformin HCl ER] 1,000 mg PO 10/07/17 Metoprolol Succinate [Toprol XL] 25 mg PO 10/07/17 Ranitidine HCl [Zantac] 75 mg PO 10/07/17 predniSONE [Deltasone] 10 mg PO DIRECTED #36 tablet 10/07/17 - SOCIAL HX Smoking History: cigarettes - FAMILY HX Family History: denies: emphysema - VITAL SIGNS Vital Signs: Vital Signs Temp Pulse Resp BP Pulse Ox 98.1 F 88 20 171/99 93 12/16/17 11:52 12/16/17 11:52 12/16/17 11:52 12/16/17 11:52 12/16/17 11:52 - REVIEWED ASSESSMENTS Nursing Assessment Reviewed: Yes Vitals Reviewed: Yes Progress - Progress Progress: Wheezing resolved after duoneb. Lab reviewed. Will start patient back on singulair, proair and Lisinopril 20mg qd. Will defer other medications to PCP. Appointment made for 12/17/17 with Harris Morelos to establish PCP. ED Results Lab/Radiology - Orders Orders: ED Orders Category Date Time Status CBC/PLATELET/DIFF Stat Lab 12/16/17 12:37 Received CMP Stat Lab 12/16/17 12:37 Received Ipratropium/Albuterol Sulfate [Duoneb] Med 12/16/17 12:01 Discontinued 3 ml NEB .STK-MED ONE Ipratropium/Albuterol Sulfate [Duoneb] Med 12/16/17 12:01 Discontinued 3 ml NEB STAT STA Asthma Physical Exam - EXAM General Appearance: mild distress EENT: eye inspection normal, ENT inspection normal, pharynx normal, no signs of dehydration, BEVERLEY, TM's nml Respiratory: no resp. distress, no pain on inspiration, speaks full sentences, wheezes (expiratory), no pleuritic chest pain CVS: reg rate & rhythm, heart sounds normal, equal pulses, no murmur, no gallop , PMI nml, no JVD, no friction rub, 24 Abdomen: non-tender, no organomegaly, nml bowel sounds, no distention Skin: color nml, no rash, warm, nml palp., dry Extremities: non-tender, normal range of motion, no evidence of injury, no edema , J, COLLECTION CORRESPONDENT Neuro/Psych: oriented x3, neuro intact, mood/affect nml, CN's nml as tested Discharge Clincal Impression: Essential hypertension Asthma Qualifiers: Asthma severity: mild Asthma persistence: intermittent Asthma complication type : uncomplicated Qualified Code(s): J45.20 - Mild intermittent asthma, uncomplicated Exacerbation of asthma Qualifiers: Asthma severity: mild Asthma persistence: intermittent Qualified Code(s): J45.21 - Mild intermittent asthma with (acute) exacerbation Referrals: Primary Doctor,No [Primary Care Provider] - 2 Days Additional Instructions: Continue your daily allergy medication - Claritin, Zully or Zyrtec supervisor [employer] plant your lisinopril, singulair and Proair at the pharmacy today. Follow Up appointment to establish primary care: [facility] ALFRED 12/17/17 9:15 Condition: Stable Disposition: 01 HOME, SELF-CARE Decision to Admit: NO Decision Time: 13:20
[2017-12-16 13:18] LABS: eGFR (African) > 60; eGFR (Non-African) > 60
[2017-12-16 13:31] VITALS: BP 152/107
== END 2017-12-16 13:21 | disposition home or self-care (01) ==
LOC: ED 11:52
DX: J44.1 Chronic obstructive pulmonary disease with (acute) exacerbation (principal); J45.21 Mild intermittent asthma with (acute) exacerbation; F17.210 Nicotine dependence, cigarettes, uncomplicated; I10 Essential (primary) hypertension
CPT/HCPCS: 36415; 80053; 85025; 94640; 99283